=== PATIENT | female | born 1960 | race Caucasian/White ===

== ENCOUNTER → 2020-11-02 | Outpatient (CLI) | payer MEDICARE ==
[~2020-11-02] VITALS: Ht 160 cm; Wt 95.0 kg
[~2020-11-02] MED LIST: 00186-0370-20 IH; ALDACTONE 100M100 MG PO; ASTELIN NASAL S34 ML NS; CIPRO 500MG TA500 MG PO; COMBIRESP IH; IPRATROPIUM BROM3 M1 IH; K-DUR 10 MEQ T10 MEQ PO; KRISTALOSE10 GM/PACK; LASIX 80MG TABL80 MG PO; MIRAPEX 1MG PO; MUCINEX 60600 MG/TA1 PO; PERCOCET 325 MG1 TAB PO; PROAIR HFA0.09 MG/AC IH; PROAMATINE 5MG T5 MG PO; PROTONIX 40MG T40 MG PO; SINEQUAN75 MG PO; SLOW-MAG 6464 MG/TAB PO; TAURINE; TIROSINT50 MC1 PO; VITAMIN D 50,1.25 MG PO; VITAMIN D31000 I1 PO; WELLBUTRIN SR150 M1 PO; XANAX 0.5MG0.5 MG PO; XIFAXAN550 MG PO; ZOFRAN ODT4 MG PO; ZOLOFT 100MG100 MG PO
[2020-11-02 14:10] VITALS: BP 157/65; PULSE 79
[2020-11-02 14:36] LABS: PLEURAL FLUID RBC 1000 /mm3 (0-0); PLEURAL FLUID WBC 243 /mm3
[2020-11-02 16:26] LABS: PLEURAL FLUID APPEARANCE CLOUDY; PLEURAL FLUID COLOR OTHER
== END ==
LOC: COL.RAD 11:59
PROVIDERS: Internal Medicine
DX: J90 Pleural effusion, not elsewhere classified (principal); K75.81 Nonalcoholic steatohepatitis (NASH); K74.60 Unspecified cirrhosis of liver
CPT/HCPCS: 19804

== ENCOUNTER 2020-11-03 21:40 | Emergency (ER) | payer MEDICARE ==
[~2020-11-03] VITALS: Ht 157.5 cm; Wt 100.0 kg
[2020-11-03 23:38] VITALS: TEMP 98.2
[2020-11-06 00:18] LABS: BASO # 0.1 (0.0-0.2); BASO % 0.8 % (0.0-2.0); EOS # 0.2 (0.0-0.7); EOS % 2.3 % (0-4.0); GRAN # 4.5 (1.4-6.5); GRAN % 67.9 % (42.2-75.2); HEMATOCRIT 31.4 % (37.0-47.0); HEMOGLOBIN 10.7 g/dl (12.5-16.0); MEAN CELL VOLUME 95 fl (80.0-100.0); MEAN CORPUSCULAR HEMOGLOBIN 33 pg (27.0-31.0); MEAN CORPUSCULAR HGB CONC 34 g/dl (33.0-37.0); MEAN PLATELET VOLUME 9.9 fl (7.4-10.4); MONO # 0.9 (0.1-0.6); MONO % 13.7 % (1.7-9.3); PLATELET COUNT 70 K/mm3 (130-400); RED BLOOD COUNT 3.29 M/mm3 (4.10-5.30); REDCELL DISTRIBUTION WIDTH-CV 15.5 % (11.5-14.5)
[2020-11-06 01:00] VITALS: BP 131/65; PULSE 80
== END 2020-11-04 02:00 | disposition home or self-care (01) ==
LOC: COL.ER 21:40
PROVIDERS: Emergency Medicine
DX: S31.113A Laceration without foreign body of abdominal wall, right lower quadrant without penetration into peritoneal cavity, initial encounter (principal); Z88.1 Allergy status to other antibiotic agents; Z79.51 Long term (current) use of inhaled steroids; W45.0XXA Nail entering through skin, initial encounter

== ENCOUNTER 2020-12-01 10:56 | Emergency (ER) | payer MEDICARE ==
[~2020-12-01] VITALS: Ht 160 cm; Wt 99.1 kg
[2020-12-01 11:32] LABS: BASO % 0.2 % (0.0-2.0); EOS % 0.1 % (0-4.0); GRAN % 81.1 % (42.2-75.2); HEMOGLOBIN 11.8 g/dl (12.5-16.0); LYMPH # 0.9 (1.2-3.4); LYMPH % 8.7 % (20.0-51.0); MEAN CELL VOLUME 98 fl (80.0-100.0); MEAN CORPUSCULAR HEMOGLOBIN 32 pg (27.0-31.0); MEAN CORPUSCULAR HGB CONC 32 g/dl (33.0-37.0); MEAN PLATELET VOLUME 10.4 fl (7.4-10.4); MONO # 0.9 (0.1-0.6); MONO % 9.5 % (1.7-9.3); PLATELET COUNT 96 K/mm3 (130-400); RED BLOOD COUNT 3.75 M/mm3 (4.10-5.30); REDCELL DISTRIBUTION WIDTH-CV 16.2 % (11.5-14.5)
[2020-12-01 11:33] LABS: HEMATOCRIT 36.6 % (37.0-47.0)
[2020-12-01 11:38] LABS: PROTHROMBIN TIME 22.8 SECONDS (9.7-12.8)
[2020-12-01 11:40] LABS: ALBUMIN 3.3 gm/dL (3.5-5.0); BILIRUBIN,TOTAL 1.9 mg/dL (0.0-1.0); CALCIUM 8.4 mg/dL (8.4-10.2); CREATININE, serum 0.74 (0.52-1.25); POTASSIUM 5.1 mmol/L (3.4-5.0); TOTAL PROTEIN 6.5 gm/dL (6.4-8.2)
[2020-12-01 13:46] LABS: COLLECTION METHOD CLEAN CATCH
[2020-12-01 13:56] LABS: MUCOUS Present /lpf; PH 5 (5-8); SQUAMOUS EPITHELIAL 0-2 /hpf; URINE APPEARANCE Clear; URINE BACTERIA None Seen /hpf; URINE BILIRUBIN Negative (NEGATIVE); URINE BLOOD Negative (NEGATIVE); URINE COLOR Amber; URINE GLUCOSE Negative (NEGATIVE); URINE KETONE Negative (NEGATIVE); URINE LEUKOCYTE ESTERASE Negative (NEGATIVE); URINE NITRATE Negative (NEGATIVE); URINE PROTEIN(semi-quant) Negative (NEGATIVE); URINE RBC 0-2 /hpf
[2020-12-01 21:01] VITALS: BP 118/64; PULSE 85; TEMP 98.5
== END 2020-12-01 20:50 | disposition short-term general hospital (02) ==
LOC: COL.ER 10:56
PROVIDERS: Physician Assistant
DX: S22.31XA Fracture of one rib, right side, initial encounter for closed fracture (principal); K72.10 Chronic hepatic failure without coma; I10 Essential (primary) hypertension; R41.82 Altered mental status, unspecified; E66.9 Obesity, unspecified; Z86.711 Personal history of pulmonary embolism; Z88.1 Allergy status to other antibiotic agents; Z68.38 Body mass index [BMI] 38.0-38.9, adult; Z79.51 Long term (current) use of inhaled steroids; X58.XXXA Exposure to other specified factors, initial encounter
CPT/HCPCS: J1170; J1630; J2060; J3010; J7030; Q9967